=== PATIENT | female | born 1985 | race African-American/Black ===

== ENCOUNTER 2017-07-23 15:23 | Emergency (ER) | payer OTHER ==
[~2017-07-23] VITALS: Ht 162.6 cm; Wt 83.9 kg
[~2017-07-23 15:23] MED LIST: AMOXICILLIN 50500 MG PO; BENADRYL25 MG PO; CIPROFLOXACIN500 M1 PO; FLAGYL500 MG PO; GINSENG EXTRAC100 MG; IBUPROFEN 600600 M1 PO; LOPERAMIDE 2 MG2 M1 PO; LORTAB 5-500 T1 EAC1 PO; NOHOMEMEDICATIONS; NORCO 5-325 TA1 EACH PO; ONE DAILY WOME1 EAC3 PO; PHENERGAN 25 MG25 M1 PO; PREDNISONE50 MG PO; PRENATAL; TAMIFLU45 MG PO; TRAMADOL 50 MG50 MG PO; TRINATE TABLET1 TAB PO; VITAFOL-OB+DHA1 EACH PO; VITCB500GO; ZOFRAN 4 MG ORAL4 M1 DIS; ZOFRAN ODT4 MG PO
[2017-07-23] MEDS ORDERED: IBUPROFEN 600600 M1 PO (16:14)
== END 2017-07-23 16:29 | disposition home or self-care (01) ==
LOC: ER 15:23
DX: J06.9 Acute upper respiratory infection, unspecified (principal); Z90.49 Acquired absence of other specified parts of digestive tract; Z88.8 Allergy status to other drugs, medicaments and biological substances

== ENCOUNTER 2018-01-21 23:19 | Emergency (ER) | payer OTHER ==
[~2018-01-21] VITALS: Ht 162.6 cm; Wt 81.2 kg
--- NOTE | ~2018-01-21 | EKG ---
[address] [address] ELECTROCARDIOGRAM REPORT Name: MAGO RODRIGUEZ Room #: [facility]#: [id number] Admission: 01/21/18 Attend Phys: Discharge: 01/22/18 Date of : 81 Report #: [id number] THIS REPORT FOR: //name// [facility] ED Test Date: 2018-01-21 Test Time: 23:27:06 Pat Name: MAGO RODRIGUEZ Department: Room: Gender: F Mechanical Systems Design Engineer: LETICIA : 1985 Requested By: Tyson Dsouza Order Number: [id number] MD: Sandeep Pinto Measurements Intervals [place] Rate: 85 P: 80 VT: 138 QRS: 12 QRSD: 104 T: 11 QT: 364 QTc: 433 Interpretive Statements Sinus rhythm RSR' in V1 or V2, right VCD Borderline T abnormalities, anterior leads Compared to ECG 07/19/2007 09:37:45 No significant change was found Electronically Signed On 01-22-2018 8:21:44 CDT by Sandeep Pinto [email or web address] <ELECTRONICALLY SIGNED> By: Sandeep Pinto MD, [facility] 01/22/18 0821 [id number] Sandeep Pinto MD, [facility] /EPI
[2018-01-22] LABS: ABSOLUTE NEUTROPHILS 2.9 thou/uL (1.4-8.2); BASOPHILS 0.8 % (0.0-2.0); EOSINOPHILS 1.7 % (0.0-3.0); HEMATOCRIT 39.5 % (37.0-47.0); HEMOGLOBIN 13.2 gm/dL (12.0-15.0); LYMPHOCYTES 53.2 % (24.0-44.0); MCH 28.8 pg (26.0-34.0); MCHC 33.3 g/dL (28.0-37.0); MCV 86.4 fL (80.0-100.0); MONOCYTES 6.4 % (1.0-8.0); PLATELET COUNT 220 thou/uL (150-400); POLYS 37.9 % (36.0-66.0); RBC 4.57 mil/uL (4.20-5.00); RDW 13.1 % (10.5-14.5); WBC 7.7 thou/uL (4.0-11.0)
[2018-01-22 00:10] LABS: URINE BILIRUBIN NEGATIVE (Negative); URINE BLOOD NEGATIVE (Negative); URINE CLARITY CLEAR; URINE COLOR YELLOW; URINE GLUCOSE-RANDOM* NEGATIVE (Negative); URINE KETONES TRACE (Negative); URINE LEUKOCYTES-REFLEX NEGATIVE (Negative); URINE NITRITE-REFLEX NEGATIVE (Negative); URINE PROTEIN (DIPSTICK) NEGATIVE (Negative); URINE SPECIFIC GRAVITY 1.025 (1.005-1.035); URINE UROBILINOGEN 0.2 E.U./dl (0.2-1.0)
[2018-01-22 00:11] LABS: ANION GAP 10 mmol/L (7-16); BUN 7 mg/dL (7-18); CALCIUM 8.5 mg/dL (8.5-10.1); CHLORIDE 104 mmol/L (98-107); CO2 24 mmol/L (21-32); CREATININE 0.9 mg/dL (0.6-1.0); GLUCOSE 111 mg/dL (74-106); POTASSIUM 3.1 mmol/L (3.5-5.1); SODIUM 138 mmol/L (136-145)
[2018-01-22 00:16] LABS: ALBUMIN 3.8 g/dL (3.4-5.0); MAGNESIUM 1.7 mg/dL (1.8-2.4); SGOT 22 U/L (15-37); SGPT 46 U/L (30-65); TOTAL BILIRUBIN 0.4 mg/dL (<0.1-1.0); TOTAL PROTEIN 7.3 g/dL (6.4-8.2); TROPONIN-I <0.06 ng/mL (<0.06)
[2018-01-22 00:17] LABS: APTT 29.1 Seconds (24.5-32.8); PROTIME 9.7 Seconds (9.3-11.4)
[2018-01-22 00:26] LABS: AMP/METHAMP Negative (Negative); BARBITURATES Negative (Negative); BENZODIAZEPINES Negative (Negative); COCAINE Negative (Negative); METHADONE Negative (Negative); OPIATES Negative (Negative); PCP Negative (Negative)
[2018-01-22 01:41] VITALS: BP 121/79
== END 2018-01-22 01:40 | disposition home or self-care (01) ==
LOC: ER 23:19
PROVIDERS: Emergency Medicine
DX: R20.2 Paresthesia of skin (principal); S01.552A Open bite of oral cavity, initial encounter; E87.6 Hypokalemia; Z90.49 Acquired absence of other specified parts of digestive tract; Z88.8 Allergy status to other drugs, medicaments and biological substances; W50.3XXA Accidental bite by another person, initial encounter; Y93.89 Activity, other specified; Y92.89 Other specified places as the place of occurrence of the external cause; Y99.8 Other external cause status